=== PATIENT | male | born 1945 | race Caucasian/White ===

== ENCOUNTER 2018-03-17 11:50 | Inpatient (IN) ==
[2018-03-17] MEDS ORDERED: MAGNESIUM SULF RIDER 4 GM in PREMIX 1 EACH IV PRN (12:48)
[2018-03-17] MEDS ORDERED: MAGNESIUM SULF RIDER 2 GM in PREMIX 1 EACH IV PRN (12:48)
[2018-03-17] MEDS ORDERED: ZALEPLON 5 MG CAPSULE PO PRN (12:48)
[2018-03-17] MEDS ORDERED: ACETAMINOPHEN 325 MG TABLET PO PRN (12:48)
[2018-03-17] MEDS ORDERED: ONDANSETRON 4 MG/2 ML VIAL IV PRN (12:48)
[2018-03-17] MEDS ORDERED: POTASSIUM CHLORIDE 20 MEQ TABLET PO PRN (12:48)
[2018-03-17] MEDS: SODIUM CHLORIDE 0.45% 1,000 ML IV SCH (13:25)
[2018-03-17] MEDS ORDERED: NITROGLYCERIN SL 0.4 MG TABLET SL PRN (13:38)
[2018-03-17] MEDS ORDERED: DOCUSATE/SENNA 50-8.6 MG TABLET PO PRN (13:38)
[2018-03-17] MEDS ORDERED: FUROSEMIDE 40 MG TABLET PO PRN (13:38)
[2018-03-17 14:25] LABS: Basophils % 0.4 % (0.0-0.8); Eosinophils # 0.2 10*3/uL (0.0-0.87); Eosinophils % 2.2 % (0.00-10.9); Hematocrit 36.7 VOL% (42.0-52.0); Hemoglobin 11.6 GM/DL (14.0-18.0); Immature Granulocytes % 0.6 %; Immature Granulocytes Absolute 0.05 #; Lymphocytes # 0.9 10*3/uL (1.4-4.0); Lymphocytes % 11.2 % (21.2-54.2); Mean Corpuscular HGB Conc 31.6 GM/DL (32-36); Mean Corpuscular Hemoglobin 31 PG (27-34); Mean Corpuscular Volume 97.9 FL (87-102); Mean Platelet Volume 10.5 FL (9.6-12.0); Monocytes # 0.7 10*3/uL (0.11-0.8); Monocytes % 8.5 % (1.7-12.7); Neutrophils % 77.1 % (38.7-73.9); Platelet Count 206 T/CUMM (130-400); Red Blood Count 3.75 MC/CUMM (3.8-5.5); Red Cell Distribution Width 15.8 % (9.3-17.3); White Blood Count 7.8 T/CUMM (4-12)
[2018-03-17 14:46] LABS: Albumin 3.3 G/DL (3.4-5.0); Bilirubin,Total 1.7 MG/DL (0.2-1.0); Calcium 8.9 MG/DL (8.5-10.1); Total Protein 6.9 G/DL (6.4-8.3)
[2018-03-17 14:48] LABS: Troponin I < 0.015 NG/ML (0.00-0.045)
[2018-03-17] MEDS: INSULIN REGULAR 100 UNIT/ML SUBCUT SCH ×2 (16:34→21:42)
[2018-03-17 18:43] LABS: Troponin I < 0.015 NG/ML (0.00-0.045)
[2018-03-17 19:42] LABS: Troponin I < 0.015 NG/ML (0.00-0.045)
[2018-03-17] MEDS: CHOLECALCIFEROL 5,000 UNIT TABLET PO SCH (21:41)
[2018-03-17] MEDS: ATORVASTATIN 20 MG TABLET PO SCH (21:41)
[2018-03-17] MEDS: TICAGRELOR 90 MG TABLET PO SCH (21:41)
[2018-03-18 06:24] LABS: Basophils % 0.3 % (0.0-0.8); Eosinophils # 0.2 10*3/uL (0.0-0.87); Eosinophils % 2.9 % (0.00-10.9); Hematocrit 36.7 VOL% (42.0-52.0); Hemoglobin 11.6 GM/DL (14.0-18.0); Immature Granulocytes % 0.6 %; Immature Granulocytes Absolute 0.04 #; Lymphocytes % 14.7 % (21.2-54.2); Mean Corpuscular HGB Conc 31.6 GM/DL (32-36); Mean Corpuscular Hemoglobin 31 PG (27-34); Mean Corpuscular Volume 97.6 FL (87-102); Monocytes # 0.7 10*3/uL (0.11-0.8); Monocytes % 9.7 % (1.7-12.7); Neutrophils # 4.9 10*3/uL (1.4-7.4); Neutrophils % 71.8 % (38.7-73.9); Platelet Count 198 T/CUMM (130-400); Red Blood Count 3.76 MC/CUMM (3.8-5.5); Red Cell Distribution Width 15.7 % (9.3-17.3); White Blood Count 6.8 T/CUMM (4-12)
[2018-03-18 06:38] LABS: Calcium 8.9 MG/DL (8.5-10.1); Osmolality,Calculated 284.1 MOS/KG (273-304); Potassium 3.8 MMOL/L (3.5-5.1); Risk Ratio 2.91; VLDL CHOLESTEROL 19.8 MG/DL
[2018-03-18] MEDS: SODIUM CHLORIDE 0.45% 1,000 ML IV SCH ×4 (08:07→20:21)
[2018-03-18] MEDS: INSULIN REGULAR 100 UNIT/ML SUBCUT SCH ×4 (08:08→20:22)
[2018-03-18] MEDS ORDERED: amLODIPine 2.5 MG TABLET PO SCH (09:00)
[2018-03-18] MEDS ORDERED: THROMBIN TOPICAL (RECOMBINANT) 5,000 UNIT VIAL TOP ONE (09:16)
[2018-03-18] MEDS: VALSARTAN 160 MG TABLET PO SCH (10:52)
[2018-03-18] MEDS: DOXAZOSIN 4 MG TABLET PO SCH (10:52)
[2018-03-18] MEDS: PYRIDOXINE 100 MG TABLET PO SCH (10:53)
[2018-03-18] MEDS: NEBIVOLOL 10 MG TABLET PO SCH (10:53)
[2018-03-18] MEDS: ASPIRIN EC 81 MG TABLET PO SCH (10:53)
[2018-03-18] MEDS: FINASTERIDE 5 MG TABLET PO SCH (10:53)
[2018-03-18] MEDS: hydroCHLOROthiazide 25 MG TABLET PO SCH (10:54)
[2018-03-18] MEDS: POTASSIUM CHLORIDE 20 MEQ TABLET PO SCH (10:54)
[2018-03-18] MEDS: FLUTICASONE 50 MCG NASAL SPRAY 16 GM BOTTLE BOTH NARES SCH (10:54)
[2018-03-18] MEDS: PANTOPRAZOLE 40 MG TABLET PO SCH (10:54)
[2018-03-18] MEDS: ALLOPURINOL 300 MG TABLET PO SCH (10:54)
[2018-03-18] MEDS: TICAGRELOR 90 MG TABLET PO SCH ×2 (10:54→20:30)
[2018-03-18] MEDS ORDERED: amLODIPine 5 MG TABLET PO SCH (15:57)
[2018-03-18] MEDS: CHOLECALCIFEROL 5,000 UNIT TABLET PO SCH (20:30)
[2018-03-18] MEDS: ATORVASTATIN 20 MG TABLET PO SCH (20:30)
[2018-03-19] MEDS: SODIUM CHLORIDE 0.45% 1,000 ML IV SCH (05:12)
[2018-03-19 06:08] LABS: Basophils % 0.4 % (0.0-0.8); Eosinophils # 0.2 10*3/uL (0.0-0.87); Eosinophils % 3.6 % (0.00-10.9); Hematocrit 34.7 VOL% (42.0-52.0); Hemoglobin 11.2 GM/DL (14.0-18.0); Immature Granulocytes % 0.4 %; Immature Granulocytes Absolute 0.03 #; Lymphocytes # 0.9 10*3/uL (1.4-4.0); Lymphocytes % 13.7 % (21.2-54.2); Mean Corpuscular HGB Conc 32.3 GM/DL (32-36); Mean Corpuscular Hemoglobin 32 PG (27-34); Mean Platelet Volume 10.1 FL (9.6-12.0); Monocytes # 0.6 10*3/uL (0.11-0.8); Monocytes % 9.4 % (1.7-12.7); Neutrophils # 4.9 10*3/uL (1.4-7.4); Neutrophils % 72.5 % (38.7-73.9); Platelet Count 193 T/CUMM (130-400); Red Blood Count 3.54 MC/CUMM (3.8-5.5); Red Cell Distribution Width 15.4 % (9.3-17.3); White Blood Count 6.7 T/CUMM (4-12)
[2018-03-19 06:33] LABS: Calcium 8.4 MG/DL (8.5-10.1); Osmolality,Calculated 283.3 MOS/KG (273-304); Potassium 3.9 MMOL/L (3.5-5.1)
[2018-03-19] MEDS: INSULIN REGULAR 100 UNIT/ML SUBCUT SCH ×2 (07:49→12:15)
[2018-03-19 08:05] VITALS: BP 146/68
[2018-03-19] MEDS: TICAGRELOR 90 MG TABLET PO SCH (08:46)
[2018-03-19] MEDS: FINASTERIDE 5 MG TABLET PO SCH (08:47)
[2018-03-19] MEDS: hydroCHLOROthiazide 25 MG TABLET PO SCH (08:47)
[2018-03-19] MEDS: VALSARTAN 160 MG TABLET PO SCH (08:47)
[2018-03-19] MEDS: PYRIDOXINE 100 MG TABLET PO SCH (08:47)
[2018-03-19] MEDS: POTASSIUM CHLORIDE 20 MEQ TABLET PO SCH (08:47)
[2018-03-19] MEDS: ALLOPURINOL 300 MG TABLET PO SCH (08:47)
[2018-03-19] MEDS: DOXAZOSIN 4 MG TABLET PO SCH (08:47)
[2018-03-19] MEDS: ASPIRIN EC 81 MG TABLET PO SCH (08:47)
[2018-03-19] MEDS: PANTOPRAZOLE 40 MG TABLET PO SCH (08:47)
[2018-03-19] MEDS: NEBIVOLOL 10 MG TABLET PO SCH (08:47)
[2018-03-19] MEDS: FLUTICASONE 50 MCG NASAL SPRAY 16 GM BOTTLE BOTH NARES SCH (08:50)
== END 2018-03-19 12:41 | disposition home or self-care (01) | DRG 920 ==
LOC: N.TELEN
PROVIDERS: ADMIT Internal Medicine Cardiovascular Disease; ATTEND Internal Medicine Cardiovascular Disease

== ENCOUNTER 2019-06-30 09:47 | Observation (INO) ==
[2019-06-30 10:16] LABS: Basophils % 0.3 % (0.0-0.8); Eosinophils # 0.1 10*3/uL (0.0-0.87); Eosinophils % 1.2 % (0.00-10.9); Hematocrit 36.7 VOL% (42.0-52.0); Hemoglobin 11.8 GM/DL (14.0-18.0); Immature Granulocytes % 0.7 %; Immature Granulocytes Absolute 0.05 #; Lymphocytes # 1.4 10*3/uL (1.4-4.0); Lymphocytes % 18.2 % (21.2-54.2); Mean Corpuscular HGB Conc 32.2 GM/DL (32-36); Mean Corpuscular Volume 97.9 FL (87-102); Mean Platelet Volume 10.5 FL (9.6-12.0); Monocytes % 9.1 % (1.7-12.7); Neutrophils % 70.5 % (38.7-73.9); Platelet Count 184 T/CUMM (130-400); Red Blood Count 3.75 MC/CUMM (3.8-5.5); White Blood Count 7.5 T/CUMM (4-12)
[2019-06-30] MEDS ORDERED: methylPREDNISolone SOD SUC 125 MG/2 ML VIAL IV STA (10:16)
[2019-06-30] MEDS ORDERED: ALBUTEROL NEB SOLN 5 MG/ML 20 ML/BOTTLE CONT NEB SCH (10:30)
[2019-06-30 10:34] LABS: Albumin 3.5 G/DL (3.4-5.0); Bilirubin,Total 0.5 MG/DL (0.2-1.0); Calcium 8.9 MG/DL (8.5-10.1); Osmolality,Calculated 291.1 MOS/KG (273-304); Total Protein 6.6 G/DL (6.4-8.3)
[2019-06-30 10:38] LABS: Eosinophils 3 % (0-10); Hypochromasia 1+; Lymphocytes 19 % (20-55); Ovalocytes Slight; Platelet Estimate Adequate; Segmented Neutrophils 72 % (50-85); Total Cells Counted 100
[2019-06-30 10:42] LABS: INR 1.1; PT Patient Result 11.6 SECS (9.6-12.2); Partial Thromboplastin Time 25.9 SECS (20.8-36.0)
[2019-06-30] MEDS ORDERED: NITROGLYCERIN SL 0.4 MG TABLET SL PRN (13:57)
[2019-06-30] MEDS ORDERED: FUROSEMIDE 40 MG TABLET PO PRN (13:57)
[2019-06-30] MEDS ORDERED: DOCUSATE/SENNA 50-8.6 MG TABLET PO PRN (14:30)
[2019-06-30] MEDS ORDERED: ONDANSETRON 4 MG/2 ML VIAL IV PRN (14:34)
[2019-06-30] MEDS ORDERED: GLUCAGON 1 MG VIAL IM PRN (14:34)
[2019-06-30] MEDS ORDERED: DEXTROSE 10% 25 GM/250 ML BAG IV PRN (14:34)
[2019-06-30] MEDS ORDERED: SODIUM CHLORIDE 0.9% 1,000 ML IV SCH (15:00)
[2019-06-30] MEDS: ALBUTEROL/IPRATROPIUM 3 ML NEB RESP TX SCH ×3 (15:04→22:55)
[2019-06-30] MEDS: OXYBUTYNIN XL 15 MG TABLET PO SCH (17:30)
[2019-06-30] MEDS: VALSARTAN 160 MG TABLET PO SCH (17:30)
[2019-06-30] MEDS: DOXAZOSIN 4 MG TABLET PO SCH (17:30)
[2019-06-30] MEDS: NEBIVOLOL 10 MG TABLET PO SCH (17:30)
[2019-06-30] MEDS: POTASSIUM CHLORIDE 20 MEQ TABLET PO SCH (17:31)
[2019-06-30] MEDS: PYRIDOXINE 100 MG TABLET PO SCH (17:31)
[2019-06-30] MEDS: amLODIPine 2.5 MG TABLET PO SCH (17:31)
[2019-06-30] MEDS: metFORMIN 500 MG TABLET PO SCH (17:32)
[2019-06-30] MEDS: INSULIN LISPRO 100 UNIT/ML SUBCUT SCH ×2 (17:32→22:00)
[2019-06-30] MEDS ORDERED: ATORVASTATIN 20 MG TABLET PO SCH (21:00)
[2019-06-30] MEDS: FUROSEMIDE 20 MG/2 ML VIAL IV SCH (22:00)
[2019-06-30] MEDS: TICAGRELOR 90 MG TABLET PO SCH (22:00)
[2019-07-01] MEDS: ALBUTEROL/IPRATROPIUM 3 ML NEB RESP TX SCH ×3 (02:00→11:01)
[2019-07-01 05:31] LABS: Basophils % 0.1 % (0.0-0.8); Hematocrit 35.4 VOL% (42.0-52.0); Hemoglobin 11.2 GM/DL (14.0-18.0); Immature Granulocytes % 0.9 %; Immature Granulocytes Absolute 0.09 #; Lymphocytes # 0.8 10*3/uL (1.4-4.0); Lymphocytes % 7.3 % (21.2-54.2); Mean Corpuscular HGB Conc 31.6 GM/DL (32-36); Mean Corpuscular Volume 99.2 FL (87-102); Mean Platelet Volume 10.6 FL (9.6-12.0); Monocytes % 5.6 % (1.7-12.7); Neutrophils % 86.1 % (38.7-73.9); Platelet Count 197 T/CUMM (130-400); Red Blood Count 3.57 MC/CUMM (3.8-5.5); White Blood Count 10.3 T/CUMM (4-12)
[2019-07-01 05:36] LABS: Calcium 8.8 MG/DL (8.5-10.1); Osmolality,Calculated 295.3 MOS/KG (273-304)
[2019-07-01] MEDS: FUROSEMIDE 20 MG/2 ML VIAL IV SCH (08:55)
[2019-07-01] MEDS: INSULIN LISPRO 100 UNIT/ML SUBCUT SCH ×2 (08:57→13:12)
[2019-07-01] MEDS: VALSARTAN 160 MG TABLET PO SCH (08:58)
[2019-07-01] MEDS: NEBIVOLOL 10 MG TABLET PO SCH (08:59)
[2019-07-01] MEDS: DOXAZOSIN 4 MG TABLET PO SCH (08:59)
[2019-07-01] MEDS: TICAGRELOR 90 MG TABLET PO SCH (08:59)
[2019-07-01] MEDS: metFORMIN 500 MG TABLET PO SCH (08:59)
[2019-07-01] MEDS: POTASSIUM CHLORIDE 20 MEQ TABLET PO SCH (08:59)
[2019-07-01] MEDS ORDERED: PANTOPRAZOLE 40 MG TABLET PO SCH (09:00)
[2019-07-01] MEDS: amLODIPine 2.5 MG TABLET PO SCH (09:00)
[2019-07-01] MEDS ORDERED: AZITHROMYCIN INJ 500 MG in SODIUM CHLORIDE 0.9% 250 ML IV SCH (09:00)
[2019-07-01] MEDS ORDERED: FLUTICASONE 50 MCG NASAL SPRAY 16 GM BOTTLE BOTH NARES SCH (09:00)
[2019-07-01] MEDS: OXYBUTYNIN XL 15 MG TABLET PO SCH (11:39)
[2019-07-01] MEDS: PYRIDOXINE 100 MG TABLET PO SCH (11:40)
[2019-07-01 11:59] VITALS: BP 131/78
== END 2019-07-01 02:05 | disposition home or self-care (01) ==
LOC: N.ED 09:47 → N.EDINP 09:47 → SUPCPDRO 14:34 → N.EDINP 15:30 → N.2W 16:09
PROVIDERS: ADMIT Family Medicine; ATTEND Family Medicine